=== PATIENT | male | born 1940 | race Caucasian/White ===

== ENCOUNTER 2019-12-31 10:43 | Emergency (ER) | payer OTHER, SELFPAY ==
[2019-12-31 10:49] VITALS: BP 137/70; PULSE 72; RESP 18; TEMP 36.6; O2SAT 100
--- NOTE | 2019-12-31 11:03 | ED.EAR ---
HPI - Ear Problem General Chief complaint: Ear <ROGELIO Dickens Last Filed: 12/31/19 11:13> Stated complaint: EAR CLOGGED <ROGELIO Dickens Last Filed: 12/31/19 11:13> Time Seen by Provider: 12/31/19 10:49 <ROGELIO Dickens Last Filed: 12/31/19 11:13> Source: patient <ROGELIO Dickens Last Filed: 12/31/19 11:13> Mode of arrival: ambulatory <ROGLEIO Dickens Last Filed: 12/31/19 11:13> Limitations: no limitations <ROGELIO Dickens Last Filed: 12/31/19 11:13> History of Present Illness HPI Narrative: This is a 79 year old male that presents to the ER for congestion x 5 days. Reports he saw his PCP for this and was given ear drops. Reports he has continued to feel fullness in his ears and have nasal congestion and rhinorrhea. Reports the congestion in his nose is making it difficult for him to breath out of his nose. Also reports a mild cough that is non-productive. Does report history of some sinus issues and that he is supposed to be getting a referral to a ENT doctor for this. Denies fever, chest pain or shortness of breath. <ROGELIO Dickens Last Filed: 12/31/19 11:13> Related Data Home medications: Home Medications Medication Instructions Recorded Confirmed aspirin 81 mg chewable tablet 81 mg PO DAILY 09/22/19 12/29/19 citalopram 20 mg tablet 20 mg PO DAILY 10/17/19 12/29/19 finasteride 5 mg tablet 5 mg PO DAILY 10/17/19 12/29/19 trazodone 50 mg tablet 50 mg PO TID 10/17/19 12/29/19 <ROGELIO Dickens Last Filed: 12/31/19 11:13> Allergies/adverse reactions: Allergies Allergy/AdvReac Type Severity Reaction Status Date / Time No Known Allergies Allergy Verified 12/31/19 10:53 <ROGELIO Dickens Last Filed: 12/31/19 11:13> Review of Systems Review of Systems: Narrative: CONSTITUTIONAL: Denies fever, chills ENT: Reports rhinorrhea, congestion. Denies sore throat, or otalgia. CARDIOVASCULAR: Denies chest pain RESPIRATORY: Reports cough. Denies dyspnea. NEUROLOGIC: Denies weakness. <Debbie Ugarte PA-C - Last Filed: 12/31/19 11:13> All systems reviewed & are unremarkable except as noted in HPI and below <Debbie Ugarte PA-C - Last Filed: 12/31/19 11:13> [facility] Social History Social History: Social History Smoking status: Light tobacco smoker Second hand tobacco smoke exposure: No Smoking end date: 10/19/11 Alcohol intake: current Gender identity (if verbalized by the patient): Male <Debbie Ugarte PA-C - Last Filed: 12/31/19 11:13> Exam Narrative: Exam Narrative: GENERAL: Elderly, well-nourished, and in no acute distress. HEAD: Normocephalic, atraumatic. EYES: EOMI. ENT: Turbinates swollen and pale. Mucous membranes moist. Oropharynx without tonsillar hypertrophy exudate or other lesions. Bilateral TMs pearly osorio non-bulging. No sinus tenderness NECK: Supple. No adenopathy or masses. CHEST: Clear to auscultation. No respiratory distress. No wheezes rales or rhonchi HEART: Regular rate and rhythm. No murmur heard. Normal peripheral pulses. EXTREMITIES: Normal range of motion. No edema. SKIN: Warm, dry, no rash. NEURO: No focal deficits. Alert and oriented x3. PSYCH: Normal mood and affect <Debbie Ugarte PA-C - Last Filed: 12/31/19 11:13> Course Vital Signs Vital signs: Vital Signs Temperature 98 F 12/31/19 10:49 Pulse Rate 72 12/31/19 10:49 Respiratory Rate 18 12/31/19 10:49 Blood Pressure 137/70 12/31/19 10:49 Pulse Oximetry 100 12/31/19 10:49 Temperature 98 F 12/31/19 10:49 Pulse Rate 72 12/31/19 10:49 Respiratory Rate 18 12/31/19 10:49 Blood Pressure 137/70 12/31/19 10:49 Pulse Oximetry 100 12/31/19 10:49 <Debbie Ugarte PA-C - Last Filed: 12/31/19 11:13> Vital Signs Temperature 98 F 12/31/19 10:49 Pulse Rate 72 12/31/19 10:49 Respirato
== END 2019-12-31 11:24 | disposition home or self-care (01) ==
PROVIDERS: Emergency Provider General Practice; PCP Internal Medicine
DX: J01.90 Acute sinusitis, unspecified (principal); F17.200 Nicotine dependence, unspecified, uncomplicated
CPT/HCPCS: 99283

== ENCOUNTER 2020-01-02 01:43 | Day surgery (SDC) | payer OTHER, SELFPAY ==
[2019-12-29 12:06] VITALS: BMI 23.0
[2020-01-02 09:50] VITALS: BP 133/73; PULSE 79; RESP 18; TEMP 36.8; O2SAT 99
--- NOTE | 2020-01-02 09:53 | WPDANESEPPF ---
Anes - Initial Pre Proc Eval Procedure: Operation Date: 01/02/20 10:30 Proposed Procedures p Colonoscopy - Alexx Leyva MD Date/Time: 01/02/20 09:53 Surgeon: Alexx Leyav MD Pre Op Diagnosis: History of Polyps Patient Data Age: 79 Gender: M Height: 5 ft 3 in Weight: 52.1 kg Last Vital Signs Temp 36.8 C 01/02/20 09:50 Pulse 79 01/02/20 09:50 Resp 18 01/02/20 09:50 BP 133/73 01/02/20 09:50 Pulse Ox 99 01/02/20 09:50 Allergies Allergy/AdvReac Type Severity Reaction Status Date / Time No Known Allergies Allergy Verified 01/02/20 09:48 Home Medications Medication Instructions Recorded Confirmed Type aspirin 81 mg chewable tablet 81 mg PO DAILY 09/22/19 01/02/20 History citalopram 20 mg tablet 20 mg PO DAILY 10/17/19 01/02/20 History finasteride 5 mg tablet 5 mg PO DAILY 10/17/19 01/02/20 History ropinirole 2 mg tablet 2 mg PO BID #180 tablet 10/17/19 01/02/20 Rx trazodone 50 mg tablet 50 mg PO TID 10/17/19 01/02/20 History Patient hx anesthesia problems: none Family hx anesthesia problems: none PMFSH Past Medical History Medical History History of actinic keratoses History of basal cell carcinoma (BCC) History of SCC (squamous cell carcinoma) of skin Family History Family History Father Family history of kidney disease Other Family history of pancreatic disease Social History Social History Smoking status: Light tobacco smoker Second hand tobacco smoke exposure: No Smoking end date: 10/19/11 Alcohol intake: current Gender identity (if verbalized by the patient): Male Anes - Eval Final PreProcedure Day of Procedure 01/02/20 09:53 Patient weight: normal Heart: regular rate and rhythm Lungs: clear to auscultation Airway: Mallampati scale class II Neurological: alert and oriented Last oral intake: >/= 8 hours ASA classification: III Emergent: no Anesthetic plan: proceed Anesthesia type and monitoring: general GIVS and standard monitoring Informed Consent: The patient's anesthetic plan and its attendant risks and benefits were discussed with the patient/family/POA. Questions were solicited and answers provided to the satisfaction of the patient/family/POA.
[2020-01-02] MEDS: LACTATED RINGERS 1,000 ML 150 ML IV CONT (09:58)
--- NOTE | 2020-01-02 10:18 | PM.HPGS ---
History of Present Illness History of Present Illness Consent: Risks, benefits, and alternatives have been discussed and questions answered. Patient agrees to proceed with procedure. Chief complaint: History of Polyps Narrative: Gino Funes is a 79 year old W male referred for screening colonoscopy secondary to personal history of colon cancer underwent a right hemicolectomy in 2012. Patient's last colonoscopy was 3 years ago. He did have an adenomatous polyp removed at that time. Patient is asymptomatic. [facility] Past Medical History Medical History History of actinic keratoses History of basal cell carcinoma (BCC) History of SCC (squamous cell carcinoma) of skin Family History Family History Father Family history of kidney disease Other Family history of pancreatic disease Social History Social History Smoking status: Light tobacco smoker Second hand tobacco smoke exposure: No Smoking end date: 10/19/11 Alcohol intake: current Gender identity (if verbalized by the patient): Male Meds Home Medications and Allergies Home Medications Medication Instructions Recorded Confirmed Type aspirin 81 mg chewable tablet 81 mg PO DAILY 09/22/19 01/02/20 History citalopram 20 mg tablet 20 mg PO DAILY 10/17/19 01/02/20 History finasteride 5 mg tablet 5 mg PO DAILY 10/17/19 01/02/20 History ropinirole 2 mg tablet 2 mg PO BID #180 tablet 10/17/19 01/02/20 Rx trazodone 50 mg tablet 50 mg PO TID 10/17/19 01/02/20 History Allergies Allergy/AdvReac Type Severity Reaction Status Date / Time No Known Allergies Allergy Verified 01/02/20 09:48 Vital Signs Vital Signs - 24 hr 01/02/20 09:50 Temperature 36.8 C Pulse Rate 79 Respiratory Rate 18 Blood Pressure 133/73 Pulse Oximetry 99 Exam Const: Orientation/consciousness: patient oriented x3 Resp: Auscultation: clear to auscultation bilaterally Cardio: Rate: regular rate Rhythm: regular rhythm Heart sounds: no murmurs GI: GI Palp: Yes Soft to palpation, No Tenderness to palpation present (GI), Yes No hepatosplenomegaly present and No Palpable mass present Auscultation: normal bowel sounds Neuro: General: patient oriented x3 and no focal motor deficits Extrem: General: no pedal edema Assessment and Plan Additional Plan screening colonoscopy secondary to personal history of colon cancer
[2020-01-02 11:18] VITALS: BP 102/55; PULSE 63; RESP 16; O2SAT 98
[2020-01-02 11:28] VITALS: BP 110/75; PULSE 64; RESP 18; O2SAT 98
[2020-01-02 11:38] VITALS: BP 113/76; PULSE 62; RESP 21; O2SAT 99
== END 2020-01-02 11:43 | disposition home or self-care (01) ==
PROVIDERS: PCP Internal Medicine; Visit Provider Internal Medicine Gastroenterology
PROC: 0DJD8ZZ Inspection of Lower Intestinal Tract, Via Natural or Artificial Opening Endoscopic (ICD-10-PCS; CPT 45378; principal; 2020-01-02 10:30)
DX: Z12.11 Encounter for screening for malignant neoplasm of colon (principal); D12.4 Benign neoplasm of descending colon; K64.1 Second degree hemorrhoids; K57.30 Diverticulosis of large intestine without perforation or abscess without bleeding; Z85.038 Personal history of other malignant neoplasm of large intestine; F17.210 Nicotine dependence, cigarettes, uncomplicated; Z79.82 Long term (current) use of aspirin; Z90.49 Acquired absence of other specified parts of digestive tract
CPT/HCPCS: 45385; 88305; J2704; J7120

== ENCOUNTER 2020-09-18 06:54 | Outpatient (NON) | payer OTHER, SELFPAY ==
[2020-09-18 23:36] LABS: SARS-CoV-2 RNA PCR Positive
== END 2020-09-18 06:55 ==
LOC: ANHCOVIDDT 07:15
PROVIDERS: PCP Internal Medicine; Visit Provider Internal Medicine
DX: U07.1 COVID-19 (principal)
CPT/HCPCS: 87635; C9803; U0003

== ENCOUNTER 2020-09-29 06:46 | Outpatient (NON) | payer OTHER, SELFPAY ==
[2020-09-30 00:44] LABS: SARS-CoV-2 RNA PCR Positive
== END 2020-09-29 06:47 ==
LOC: ANHCOVIDDT 06:50
PROVIDERS: PCP Internal Medicine; Visit Provider Internal Medicine
DX: U07.1 COVID-19 (principal); R68.89 Other general symptoms and signs
CPT/HCPCS: 87635; C9803; U0003

== ENCOUNTER 2020-10-15 09:03 | Outpatient (NON) | payer OTHER, SELFPAY ==
[2020-10-16 18:45] LABS: SARS-CoV-2 RNA PCR Positive
== END 2020-10-15 09:04 ==
LOC: ANHCOVIDDT 09:04
PROVIDERS: PCP Internal Medicine; Visit Provider Internal Medicine
DX: U07.1 COVID-19 (principal); R68.89 Other general symptoms and signs
CPT/HCPCS: 87635; C9803; U0003

== ENCOUNTER 2020-11-15 11:19 | Outpatient (NON) | payer MEDICARE, SELFPAY ==
[2020-11-15 21:41] LABS: SARS-CoV-2 RNA PCR Positive
== END 2020-11-15 11:20 ==
PROVIDERS: PCP Internal Medicine; Visit Provider Internal Medicine
DX: U07.1 COVID-19 (principal)
CPT/HCPCS: C9803; U0003; U0005

== ENCOUNTER → 2020-12-17 10:38 | Outpatient (CLI) | payer MEDICARE, SELFPAY ==
[2020-12-17 22:11] LABS: SARS-CoV-2 RNA PCR Negative
== END ==
PROVIDERS: PCP Internal Medicine; Visit Provider Internal Medicine
DX: R68.89 Other general symptoms and signs (principal); Z20.822 Contact with and (suspected) exposure to COVID-19
CPT/HCPCS: C9803; U0003; U0005

== ENCOUNTER → 2022-12-18 15:30 | Outpatient (CLI) | payer MEDICARE, SELFPAY ==
--- NOTE | ~2022-12-18 | XR_ITS ---
EXAMINATION: XR elbow LT min 3V DATE: 12/18/2022 15:40 INDICATION: Left elbow pain, initial encounter TECHNIQUE: Anteroposterior, two oblique and lateral views of the left elbow were obtained. COMPARISON: None. FINDINGS: There is irregularity and articular surface of the radial head. The bones are osteopenic ho wever no additional osseous abnormality is seen. Soft tissues are unremarkable. IMPRESSION: 1. Mild irregularity in the articular surface of the radial head, likely nondisplaced fracture. Reviewed, dictated and finalized at location [facility]. [employer] [employer] [employer]PER[facility] IMPRESSION: 1. Mild irregularity in the articular surface of the radial head, likely nondis placed fracture.
== END ==
PROVIDERS: PCP Family Medicine; Visit Provider Family Medicine
DX: M25.522 Pain in left elbow (principal)
CPT/HCPCS: 73080

== ENCOUNTER 2023-04-15 07:55 | Outpatient (CLI) | payer MEDICARE, SELFPAY ==
[2023-04-15 18:33] LABS: Basophils Absolute Auto 0.1 K/mm3 (0.0-0.1); Basophils Percent Auto 1.1 % (0.2-1.2); Eosinophils Absolute Auto 0.2 K/mm3 (0-0.3); Eosinophils Percent Auto 3.4 % (0-4.4); Hematocrit 40.6 % (42.0-52.0); Immature Granulocyte Absolute 0.01 K/mm3 (0.00-0.031); Immature Granulocyte Percent A 0.2 % (0-0.5); Lymphocytes Absolute Auto 1.09 K/mm3 (0.9-3.2); Lymphocytes Percent Auto 20.5 % (18.3-44.2); Mean Corpuscular Hemoglobin 32.4 pg (26-34); Mean Corpuscular Volume 101.2 fl (80-100); Mean Platelet Volume 10.1 fl (7.4-10.4); Monocytes Absolute Auto 0.5 K/mm3 (0.1-0.6); Monocytes Percent Auto 9.8 % (2.6-8.5); Neutrophils Absolute Auto 3.5 K/mm3 (1.3-6.7); Platelet Count Result 203 k/mm3 (150-375); Red Blood Count 4.01 M/mm3 (4.6-6.20); Red Cell Distribution Width 13.5 % (11.5-14.5); White Blood Count 5.3 K/mm3 (4.5-10.0)
[2023-04-15 18:52] LABS: LDL Cholesterol Direct 70 mg/dL
[2023-04-15 18:57] LABS: Alanine Aminotransferase 17 U/L (6-50); Alkaline Phosphatase 57 U/L (38-126); Anion Gap 4 mmol/L (8-16); Aspartate Amino Transferase 36 U/L (17-59); Bilirubin,Total 0.6 mg/dL (0.2-1.3); Blood Urea Nitrogen 20 mg/dL (9-20); Calcium 8.6 mg/dL (8.4-10.2); Carbon Dioxide 28 mmol/L (22-30); Chloride 106 mmol/L (98-107); Cholesterol 196 mg/dL (0-200); Estimated Glomerular Filt Rate 58; Glucose 87 mg/dL (65-110); Potassium 4.1 mmol/L (3.4-5.0); Sodium 138 mmol/L (137-145); Triglycerides 88 mg/dL (<150)
[2023-04-15 19:41] LABS: HDL Direct 119 mg/dL
[2023-04-15 19:44] LABS: Albumin Level 3.9 g/dL (3.5-5.1)
== END 2023-04-15 07:56 | disposition home or self-care (01) ==
LOC: ANHGOSHLAB 07:56
PROVIDERS: PCP Family Medicine; Visit Provider Family Medicine
DX: Z13.228 Encounter for screening for other metabolic disorders (principal); Z13.220 Encounter for screening for lipoid disorders; R53.83 Other fatigue
CPT/HCPCS: 36415; 80053; 80061; 85025

== ENCOUNTER 2024-05-17 09:26 | Outpatient (CLI) | payer MEDICARE, SELFPAY ==
[2024-05-17 18:38] LABS: Basophils Absolute Auto 0.1 K/mm3 (0.0-0.1); Basophils Percent Auto 0.9 % (0.2-1.2); Eosinophils Absolute Auto 0.2 K/mm3 (0-0.3); Eosinophils Percent Auto 4.1 % (0-4.4); Hematocrit 39.4 % (42.0-52.0); Hemoglobin 12.7 g/dL (14.0-18.0); Immature Granulocyte Absolute 0.01 K/mm3 (0.00-0.031); Immature Granulocyte Percent A 0.2 % (0-0.5); Lymphocytes Absolute Auto 1.37 K/mm3 (0.9-3.2); Lymphocytes Percent Auto 24.2 % (18.3-44.2); Mean Corpuscular HGB Conc 32.2 g/dl (32-36); Mean Corpuscular Hemoglobin 31.7 pg (26-34); Mean Corpuscular Volume 98.3 fl (80-100); Mean Platelet Volume 10.3 fl (7.4-10.4); Monocytes Absolute Auto 0.6 K/mm3 (0.1-0.6); Monocytes Percent Auto 11.2 % (2.6-8.5); Neutrophils Absolute Auto 3.4 K/mm3 (1.3-6.7); Neutrophils Percent Auto 59.4 % (45.5-73.1); Platelet Count Result 215 k/mm3 (150-375); Red Blood Count 4.01 M/mm3 (4.6-6.20); Red Cell Distribution Width 14.6 % (11.5-14.5); White Blood Count 5.7 K/mm3 (4.5-10.0)
[2024-05-17 19:01] LABS: Alanine Aminotransferase 14 U/L (6-50); Albumin Level 3.9 g/dL (3.5-5.1); Alkaline Phosphatase 81 U/L (38-126); Anion Gap 10 mmol/L (4-12); Aspartate Amino Transferase 39 U/L (17-59); Bilirubin,Total 0.8 mg/dL (0.2-1.3); Blood Urea Nitrogen 14 mg/dL (9-20); Calcium 8.7 mg/dL (8.4-10.2); Carbon Dioxide 25 mmol/L (22-30); Chloride 100 mmol/L (98-107); Cholesterol 178 mg/dL (0-200); Estimated Glomerular Filt Rate > 60; Glucose 88 mg/dL (65-110); HDL Direct 104 mg/dL; Potassium 4.2 mmol/L (3.4-5.0); Sodium 135 mmol/L (137-145); Triglycerides 49 mg/dL (<150)
[2024-05-17 19:12] LABS: LDL Cholesterol Direct 62 mg/dL
== END 2024-05-17 09:27 | disposition home or self-care (01) ==
LOC: ANHGOSHLAB 09:28
PROVIDERS: PCP Family Medicine; Visit Provider Family Medicine
DX: E78.5 Hyperlipidemia, unspecified (principal); R53.83 Other fatigue; Z13.220 Encounter for screening for lipoid disorders; Z13.228 Encounter for screening for other metabolic disorders
CPT/HCPCS: 36415; 80053; 80061; 85025